=== PATIENT | female | born 1955 | race Caucasian/White ===

== ENCOUNTER 2025-06-28 12:06 | Observation (INO) | payer OTHER ==
[~2025-06-28] VITALS: Ht 175.3 cm; Wt 65.6 kg
--- NOTE | 2025-06-28 13:41 | Physician Documentation ---
History of Present Illness ~ Chief Complaint: Hypertension Stated Complaint: HYPERTENSION Time Seen by MD: 13:33 HPI 70-YEAR-OLD FEMALE PRESENTS TO THE ED WITH A COMPLAINT OF HYPERTENSION DIZZINESS AND A HEADACHE THIS MORNING SHE ALSO REPORTED THAT SHE HAD FLASHES OF LIGHT M OSTLY IN HER RIGHT EYE. SINCE THE SINCE GONE AWAY. DENIES ANY CHEST PAIN OR SHORTNESS OF BREATH BUT STATES SHE JUST DOES NOT FEEL QUITE RIGHT. Day of Onset: Jun 28, 2025 Medication Reconciliation Allergies: Coded Allergies: No Known Allergies (Unverified , 06/28/25) Review of Systems All Other Systems at this time: Reviewed and Negative ROS As stated above in the HPI, otherwise all systems are reviewed and negative. Physical Exam Vital Signs: Temperature: 96.9, Source: Temporal, Heart Rate: 70, Respiratory Rate: 18, BP: 196/95, Pulse Oximetry: 100, Weight: 65.600 Oxygen Flow Rate: 0 Physical Exam General: Alert, no apparent distress. Respiratory: Lungs clear, no respiratory distress. Cardiovascular: Regular rate and rhythm, no murmurs. Gastrointestinal: Soft, nontender, nondistended. Bowels sounds present. Neurologic: Oriented x4. NO FOCAL DEFICITS Psychiatric: Normal mood and affect. Skin: Normal color, warm and dry. No edema, no ecchymosis. Progress Results/Orders Results/Orders Orders - ANTHONY HERNANDEZ SUPERVISOR SCOURING PADS Ct Head (06/28/25 15:45) Page Hospitalist (06/28/25 ) Completed Orders - ANTHONY HERNANDEZ SUPERVISOR SCOURING PADS Electrocardiogram (06/28/25 ) BMP (06/28/25 13:47) PBNP (06/28/25 13:47) Hs Troponin I W Calculations (06/28/25 13:47) Ct Head (06/28/25 15:45) Hydralazine Inj. (Apresoline Inj.) (06/28/25 15:20) Urinalysis, Cult If Indicated (06/28/25 15:31) Ketorolac Trometh 30mg/Ml Vial (Toradol (06/28/25 17:15) Medications Received in ER Medications (Trade) Dose Ordered Sig/Stefanie Route PRN Reason Start Time Stop Time Status Last Admin Dose Admin (Apresoline inj.) 10 mg ONCE ONCE IV 06/28/25 15:20 06/28/25 15:21 DC 06/28/25 15:30 10 MG (Toradol inj. 30mg/ml) 15 mg ONCE ONCE IV 06/28/25 17:15 06/28/25 17:16 DC 06/28/25 17:54 15 MG (Cozaar tablet) 100 mg DAILY PO 06/28/25 17:30 06/28/25 17:52 100 MG (Norvasc tablet) 10 mg ONCE ONCE PO 06/28/25 17:30 06/28/25 17:46 DC 06/28/25 17:53 10 MG Vital Signs 06/28/25 06/28/25 06/28/25 06/28/25 12:09 14:00 15:30 15:33 Temp 96.9 Pulse 70 64 66 55 Resp 18 18 18 B/P (MAP) 196/95 178/85 (116) 167/80 (109) Pulse Ox 100 97 100 O2 Flow Rate 0 0 06/28/25 17:00 Pulse 66 Resp 18 B/P (MAP) 159/75 (103) Pulse Ox 98 Laboratory Tests Test 06/28/25 13:20 06/28/25 14:10 06/28/25 16:17 06/28/25 17:16 White Blood Count 6.3 Red Blood Count 4.89 Hemoglobin 14.9 Hematocrit 45.2 H Mean Corpuscular Volume 92.4 Mean Corpuscular Hemoglobin 30.5 Mean Corpuscular Hemoglobin Concent 33.0 Red Cell Distribution Width 13.3 Platelet Count 289 Mean Platelet Volume 8.8 Neutrophils (%) (Auto) 71.1 Lymphocytes (%) (Auto) 17.9 L Monocytes (%) (Auto) 9.4 Eosinophils (%) (Auto) 1.3 Basophils (%) (Auto) 0.3 Neutrophils # (Auto) 4.5 Lymphocytes # (Auto) 1.1 Monocytes # (Auto) 0.6 Eosinophils # (Auto) 0.1 Basophils # (Auto) 0.0 CBC Comment Chemistry Comments Sodium Level 140 Potassium Level 3.8 Chloride Level 104 Carbon Dioxide Level 29.6 Anion Gap 6 L Blood Urea Nitrogen 13 Creatinine 0.57 Estimated GFR/1.73 m2 > 90 BUN/Creatinine Ratio 22.8 H Glucose Level 97 Calcium Level 9.6 Troponin I High Sensitivity 6 9 10 Pro-B-Type Natriuretic Peptide 54 Albumin 4.1 Troponin I High Sens Percent Delta 50 11 Troponin I Hi Sens Absolute Change 3 1 Medical Decision Making Additional information obtaine: N/A Findings PATIENT HAS A PERSISTENT HEADACHE ALONG WITH RESISTANT HYPERTENSION. THIS IS UNUSUAL FOR THIS PATIENT. SHE DOES NOT HAVE ANY CURRENT FOCAL DEFICITS HOWEVER AND HER CT FINDINGS ARE UNREMARKABLE.. I GAVE HER TEN MG OF HYDRALAZINE WHICH ONLY BROUGHT HER DOWN TO 160 SYSTOLIC. GOING TO TREAT HER HEADACHE AND REQUEST EVALUATION. SHE MAY BENEFIT FROM AN ECHO CARDIOGRAM Differential Dx:Considerations: Include CHF, Include HTN, essential, Include HTN, accelerated, Include HTN, malignant, Include HTN, encephalopathy, Include medical noncompliance, Include medication withdrawal, Include pulmonary edema, Include renal failure, Include -induced, Include other Departure Disposition: ADMITTED INPATIENT Admitted to Inpatient Unit: to hospitalist Admission Level of Care: PCU Impression: Primary Impression: Hypertensive urgency Referrals: NO PRIMARY CARE PROVIDER (PCP) Signature Scribe Signature: h Attestation: Scribed for Anthony Hernandez Corporate Law Specialist by Anthony Coffey NP . 06/28/25 18:49 ANTHONY HERNANDEZ SUPERVISOR SCOURING PADS Jun 28, 2025 13:41
[2025-06-28 13:45] LABS: MEAN PLATELET VOLUME 8.8 FL (7.4-10.4); RED CELL DISTRIBUTION WIDTH 13.3 % (11.5-14.5)
--- NOTE | 2025-06-28 13:45 | RADIOLOGY REPORT ---
CHEST RADIOGRAPH Indication: CP Technique: Single frontal view of the chest was obtained Comparison: None FINDINGS: Lines and Tubes: None Lungs: No focal consolidation. Pleura: No effusion. No pneumothorax. Cardiomediastinal contours: Unremarkable Bones: No acute osseous abnormality. IMPRESSION: No acute cardiopulmonary disease.
--- NOTE | 2025-06-28 14:02 | ELECTROCARDIOGRAPH REPORT ---
[facility] Test Date: 2025-06-28 Test Time: 14:00:07 Pat Name: JAZZMINE DUPREE Department: [facility]-ER Patient ID: [facility]-[id number] Room: Gender: F Harness Cleaner: JOSE L : 1955 Requested By: IRENE HERNANDEZ Order Number: [id number] Reading MD: Measurements Intervals [place] Rate: 58 P: 79 ND: 146 QRS: 7 QRSD: 93 T: 61 QT: 449 QTc: 442 Interpretive Statements Sinus bradycardia Probable left atrial enlargement Low voltage, extremity and precordial leads Consider anterior infarct Baseline wander in lead(s) I,II,aVR,aVL Please click the below link to view image of tracing.
[2025-06-28 14:46] LABS: CREATININE 0.57 MG/DL (0.40-0.90); PRO BRAIN NATRIURETIC PEPTIDE 54 PG/ML (0-125); TOTAL CARBON DIOXIDE 29.6 MMOL/L (24-32); eCRCL 94 ML/MIN; eGFR > 90 ML/MIN
[2025-06-28] MEDS: hydrALAZINE 20mg/ml inj. IV ONE (15:30)
--- NOTE | 2025-06-28 16:19 | RADIOLOGY REPORT ---
CLINICAL HISTORY: DIZZINESS TECHNIQUE: Helical scanning was performed of the head from the skull base to the vertex. Multiplanar reconstructions were performed. This exam was performed according to our departmental dose optimization program. Up-to-date CT equipment and radiation dose reduction techniques are utilized as appropriate. CTDI 59 DLP 1052 COMPARISON: None FINDINGS: There is no evidence for acute intracranial hemorrhage, acute ischemic changes, mass, mass effect, or extra-axial fluid collection. There is no hydrocephalus or midline shift. There is no effacement of the cerebral sulci and basal subarachnoid cisterns. The hitchcock-white matter differentiation is well maintained. The imaged paranasal sinuses are clear. There has been right cataract extraction. IMPRESSION: NO ACUTE INTRACRANIAL ABNORMALITY SEEN.
[2025-06-28] MEDS ORDERED: magnesium sulf-water 2g/50mL 50 ML IV PRN (17:30)
[2025-06-28] MEDS ORDERED: magnesium sulf-water 4G/100mL 100 ML IV PRN (17:30)
[2025-06-28] MEDS ORDERED: ondansetron/PF 4mg/2ml inj IV PRN (17:30)
[2025-06-28] MEDS ORDERED: magnesium Cl slow-release 64mg tablet PO PRN (17:30)
[2025-06-28] MEDS ORDERED: potassium Cl 40MEQ/1/2NS 520ml 520 ML IV PRN (17:30)
[2025-06-28] MEDS ORDERED: potassium Cl 20 mEq SR tablet PO PRN ×2 (17:30)
[2025-06-28] MEDS ORDERED: bisacodyl 10mg suppository rectal RC PRN (17:30)
[2025-06-28] MEDS ORDERED: magnesium hydroxide 30ml (MOM) UD suspension PO PRN (17:30)
[2025-06-28] MEDS ORDERED: HYDROcodone/acetaminophen 5mg/325mg tablet PO PRN (17:30)
[2025-06-28] MEDS: ketorolac trometh 30MG/ML vial 30 MG/ML VIAL IV ONE (17:54)
[2025-06-28 18:01] LABS: LEUKOCYTE ESTERASE ,URINE NEGATIVE (Neg); NITRITES, URINE NEGATIVE (Neg); OCCULT BLOOD,URINE NEGATIVE (Neg)
[2025-06-28 18:05] LABS: UA COLLECTION TYPE CLN CATCH MIDSTREAM
[2025-06-28] MEDS ORDERED: NO HOME MEDS (19:00)
[2025-06-28] MEDS ORDERED: morphine 4 MG/ML inj SYRINge IV PRN (21:19)
--- NOTE | 2025-06-28 21:20 | HISTORY AND PHYSICAL ---
History & Physical Providers to CC ~ History of Present Illness Reason for Admit\Complaint: Hypertensive urgency History of Present Illness Patient was seen in ER with her for patient's concern regarding dizziness and headache. She also noticed light flashes in her right eye which disappeared off its own. Patient does not recall when she had her last appointment with labor relations specialist. Patient off and on gets high blood pressure follows in [facility] with COBY Rodriguez. Patient is currently not taking any medication for hypertension. In ER patient's vitals was monitored in it was 196/95 . Patient is not against taking the medication but likes to take lower dose of medication. Patient does drink alcohol one glass of wine off and on Patient also mentioned to me that she has plantar fasciitis and off and on her feet hurts and she is not following with any Podiatry specialist no procedure done for feet. She mentioned off and on when she gets the feet take she gets high blood pressure also. She recently had vacation in in that she walked a lot and did not of exertion in lifting up of stuff in house. She feels she is in stress currently. Allergies: Coded Allergies: No Known Allergies (Unverified , 06/28/25) Home Medications Home Medications Active Reported No Home Medications (Home Med List) Each Past Medical History Past Medical History No pertinent past medical history Past Surgical History Surgical History Comment No pertinent past surgical history Past Social History Social History Comment Patient denies use of any tobacco or any recreational drugs. Drink one glass of wine off and on. She lives with her able to ambulate without using any assistive device. ROS ROS Review of system as mentioned above in HPI rest of the review of system unremarkable Exam Vitals: Vital Signs Date Time Temp Pulse Resp B/P (MAP) Pulse Ox O2 Delivery O2 Flow Rate FiO2 06/28/25 18:58 75 16 171/76 (107) 100 0 06/28/25 12:09 96.9 General: General-patient not in any acute distress, alert awake oriented, age- appropriate, appear anxious. HEENT-atraumatic normocephalic, neck supple without elevated JVD, no thyromegaly or carotid bruit. No lymphadenopathy bilaterally. Eyes-no icterus or pallor seen in eyes Chest-clear to auscultation bilaterally, breathing nonlabored no tachypnea, no wheezing, no crepitation, no crackles. Heart-S1-S2 normal, regular heart rate no murmur Abdomen bowel sounds positive on auscultation, soft nondistended nontender no guarding, no rigidity Skin no active skin rash Neurology-grossly intact, nonfocal alert awake oriented Extremity- no pedal edema able to move all 4 extremities Psychiatry - patient is not confused or agitated cooperated during physical examination Diagnostic Data Last Recorded Lab Results: 06/28/25 1320 06/28/25 1410 Advance Care Planning Advanced Care plannin - 30 Minutes Additional Plan Patient was seen in ER with her for patient's concern regarding dizziness and headache. She also noticed light flashes in her right eye which disappeared off its own. In ER patient's vitals was monitored in it was 196/95 . Patient is admitted for hypertensive urgency with vision changes. Patient is strongly advised to follow with the ophthalmology specialist after her hospital discharge. Antihypertensive medication started today. Risk and consequences of uncontrolled blood pressure discussed with the patient. Lipid panel ordered for a.m.. Patient is also strongly advised to stop or taper alcohol if possible . Maintain blood pressure and heart rate log book for 2-3 weeks and follow-up with the primary care physician/ technical sales specialist for hypertension after discharge . We will continue to monitor patient's labs and vitals closely . Code status discussed with the patient patient wishes full code Time spent in discussing code status 16 minutes. Further management depending on response to treatment . I will continue to follow patient in a.m. Date of Service: Jun 28, 2025 Billing Provider: GEORGE JONES MD Common Visit Codes: 95870-IAWDTTI INP/OBS CARE (HIGH) Secondary Visit Codes: 44278-VCPVZFGD CARE PLAN 30 MINUTES GEORGE JONES MD Jun 28, 2025 21:20
[2025-06-28 21:28] VITALS: BP 113/47; PULSE 67; RESP 15; TEMP 98.3; O2SAT 98
[2025-06-28] MEDS: heparin, porcine 5000 units/ml vial SQ SCH (21:55)
[2025-06-28 22:11] VITALS: RESP 15; O2SAT 98
[2025-06-29 06:00] VITALS: BP 155/64; PULSE 67; RESP 14; TEMP 97.4; O2SAT 95
[2025-06-29 07:35] VITALS: RESP 16
[2025-06-29 09:03] LABS: MEAN PLATELET VOLUME 8.7 FL (7.4-10.4); RED CELL DISTRIBUTION WIDTH 12.8 % (11.5-14.5)
[2025-06-29 09:33] LABS: CHOL/HDL RATIO 4.1 (0.00-4.99); CREATININE 0.50 MG/DL (0.40-0.90); LDL CHOLESTEROL 164 MG/DL (50-100); TOTAL CARBON DIOXIDE 29.9 MMOL/L (24-32); eCRCL 107 ML/MIN; eGFR > 90 ML/MIN
[2025-06-29 10:00] VITALS: BP 91/61; PULSE 68; RESP 16; TEMP 98.6; O2SAT 96
[2025-06-29] MEDS ORDERED: LISI5TAB22 PO (14:00)
--- NOTE | 2025-06-29 18:38 | DISCHARGE SUMMARY ---
Discharge Summary Providers to CC ~ Discharge Summary Admission Diagnosis: HYPERTENSIVE URGENCY, VISION CHANGE Hospital Course DATE OF ADMISSION: June 28, 2025 DATE OF DISCHARGE:June 29, 2025 CBC testing done on June 29, 2025 WBC 5.6 hemoglobin 14.8 hematocrit 43.9 platelet count 286. Serum chemistry done on June 29, 2025 sodium 143 potassium 4.1 creatinine 0.50 GFR greater than 90 normal liver enzymes unremarkable cardiac marker proBNP 54. Lipid panel showing triglyceride 100 total cholesterol 260 LDL 164 HDL 64. Urine testing not showing any signs of UTI. CT HEADIMPRESSION: NO ACUTE INTRACRANIAL ABNORMALITY SEEN. CHEST,SINGLE VIEWIMPRESSION: No acute cardiopulmonary disease. Echo done today left ventricular ejection fraction 65-70% overall systolic function is normal normal left ventricular size and wall thickness RVSP 35 , rest of the echocardiogram unremarkable Discharge Diagnosis\Comment: Hypertensive urgency, dizziness and headache, light flashes in her right eye, anxiety, hyperlipidemia Operations\Procedures: None Consultants: None Complications: None Condition on DC: Stable New Medications: Lisinopril (Lisinopril) 5 Mg Tablet 1 TAB PO DAILY for 30 Days, #30 TAB 0 Refills Discontinued Medications: Home Med List (No Home Medications) Each Discharge Summary: Patient was seen in ER with her for patient's concern regarding dizziness and headache. She also noticed light flashes in her right eye which disappeared off its own. In ER patient's vitals was monitored in it was 196/95 . Patient is admitted for hypertensive urgency with vision changes. Patient is strongly advised to follow with the ophthalmology specialist after her hospital discharge. Antihypertensive medication started today in low dose . Her blood pressure improved. Risk and consequences of uncontrolled blood pressure discussed with the patient. Lipid panel ordered for a.m.. Patient is also strongly advised to stop or taper alcohol if possible . Maintain blood pressure and heart rate log book for 2-3 weeks and follow-up with the primary care physician/ billing specialist for hypertension after discharge . Further workup done results mentioned above. Patient's symptoms resolved. She was also given the option to do the head MRI in inpatient setting but she choose to do follow-up with PCP and eye check up and do MRI in outpatient setting if needed. Patient is feeling better she has been afebrile and getting discharged home in stable condition. Patient is seen and examined on the day of discharge. All labs, diagnostic workup and discharge plan discussed with patient in detail before her discharge. All questions and queries answered to the best of my professional medical knowledge. I heard patient's concerns and address appropriately. Patient was cleared by Physical therapy team for home discharge . hospice manager involved in patient's discharge plan. Discharge instructions provided to the patient. Follow-up with primary care physician in outpatient setting in 1-2 weeks. Adjustment of blood pressure medication done during hospital stay. Maintain blood pressure and heart rate log book for 2-3 weeks and follow-up with the primary care physician/ billing specialist for hypertension. Patient is strongly advised to follow with the ophthalmology specialist for her flutters in other eye problems. If symptoms get more worse come to ER for further evaluation and management. General-patient not in any acute distress, alert awake oriented, age- appropriate, appear less anxious. HEENT-atraumatic normocephalic, neck supple without elevated JVD, no thyromegaly or carotid bruit. No lymphadenopathy bilaterally. Eyes-no icterus or pallor seen in eyes Chest-clear to auscultation bilaterally, breathing nonlabored no tachypnea, no wheezing, no crepitation, no crackles. Heart-S1-S2 normal, regular heart rate no murmur Abdomen bowel sounds positive on auscultation, soft nondistended nontender no guarding, no rigidity Skin no active skin rash Neurology-grossly intact, nonfocal alert awake oriented, no focal neurological deficit able to ambulate well, normal speech no arm drift no drooping of angle of mouth . Extremity- no pedal edema able to move all 4 extremities Psychiatry - patient is not confused or agitated cooperated during physical examination *Problems/Diagnosis: (1) Hypertensive urgency Status: Acute Total Time Spent on D/C: > 30 Minutes Date of Service: Jun 29, 2025 Billing Provider: GEORGE JONES MD Common Visit Codes: 54146-SDQ/OBS DISCH DAY >30min GEORGE JONES MD Jun 29, 2025 18:31
--- NOTE | 2025-06-29 18:52 | CARDIOLOGY REPORT ---
APPROVED REPORT EXAM: Comprehensive 2D, Doppler, and color-flow Echocardiogram. Patient Location: [facility] Blood Pressure: 91/61 mmHg Heart Rate: 61 bpm Rhythm: NSR Indications Hypertension Dizziness No segment assembler No previous echo 2D Dimensions LA Diam 3.1 cm IVSd 1.0 (0.7-1.1cm) LVDd 4.2 cm PWd 1.0 (0.7-1.1cm) IVSs 1.3 (0.8-1.2cm) LVDs 2.5 (2.5-4.0cm) Aortic Root(2D) 3.0 cm PWs 1.3 (0.8-1.2cm) LVOT Diameter 2.02 (1.8-2.4cm) LVEF(%) 71.6 (>50%) Ao Asc Diam. 3.07 cm IVC 16.91 mm FS (%) 40.5 % SV 56.8 ml CO 3.5 L/min M-Mode Dimensions MV EPSS 0.3 (<0.5cm) Aortic Valve AoV Peak Neo. 208.5 cm/s AoV VTI 37.5 cm AO Peak GR. 17.4 mmHg AO Mean GR. 9 mmHg LVOT VTI 28.77 cm LVOT Peak Neo. 125.1 cm/s LASHONDA(VTI)/BSA 2.46 cm2/m2 LASHONDA (VTI) 2.46 cm2 AV DI 0.77 % Mitral Valve MV E Velocity 108.7 cm/s MV Peak Gr. 6 mmHg MV DECEL TIME 300 ms MV A Velocity 97.7 cm/s MV PHT 72 ms E/A Ratio 1.1 MVA (PHT) 3.06 cm2 MV VMax 125.5 cm/s TDI Medial E' P. V 14.10 cm/s E/Medial E' 7.7 Tricuspid Valve TR P. Velocity 248 cm/s RAP ESTIMATE 10 mmHg TR Peak Gr. 25 mmHg RVSP 35 mmHg Pulmonary Vein S1 Velocity 77.3 cm/s D2 Velocity 53.3 cm/s PVa Velocity 35.7 cm/s PVa Duration 80 msec LEFT VENTRICLE Normal LV size and wall thickness. Overall systolic function is normal. LVEF is 65-70%. RIGHT VENTRICLE RV appears normal in size and contractility. RVSP is estimated at 35 mmHG. ATRIA The left atrium size is normal. AORTIC VALVE Trileaflet AV appears sclerotic without stenosis. No insufficiency. MITRAL VALVE MV is thickened with mild annular thickening and no stenosis. Trace mitral regurgitation. TRICUSPID VALVE The tricuspid valve is normal in structure. Mild mulit-jet tricuspid regurgitation. PULMONIC VALVE The pulmonary valve is normal in structure. Trace pulmonic insufficiency. GREAT VESSELS The aortic root is normal in size. The ascending aorta is normal in size. The IVC is normal in size and collapses >50% with inspiration. PERICARDIUM There is no pericardial effusion. Other Information Study Quality: Adequate Conclusion Normal LV size and wall thickness. Overall systolic function is normal. LVEF is 65-70%. RV appears normal in size and contractility. RVSP is estimated at 35 mmHG. The left atrium size is normal. Trileaflet AV appears sclerotic without stenosis. No insufficiency. MV is thickened with mild annular thickening and no stenosis. Trace mitral regurgitation. The tricuspid valve is normal in structure. Mild mulit-jet tricuspid regurgitation. The pulmonary valve is normal in structure. Trace pulmonic insufficiency. There is no pericardial effusion.
== END 2025-06-29 15:07 | disposition home or self-care (01) ==
LOC: ER 12:07 → ED HOLD 17:33 → ORTHO 4S 17:33 → UNDOADMIN 17:33 → ED HOLD 21:13 → ORTHO 4S 21:13
PROVIDERS: ADMIT Internal Medicine; ATTEND Internal Medicine
DX: I16.0 Hypertensive urgency (principal); H53.8 Other visual disturbances; R42 Dizziness and giddiness; R51.9 Headache, unspecified; F41.9 Anxiety disorder, unspecified; E78.5 Hyperlipidemia, unspecified; Z79.899 Other long term (current) drug therapy; Z98.890 Other specified postprocedural states
CPT/HCPCS: 36415; 70450; 71045; 80048; 80053; 80061; 81003; 83880; 84484; 85025; 87081; 93005; 93306; 96372; 96374; 96375; 99285; G0378; J0360; J1644; J1885

== ENCOUNTER 2025-08-03 10:18 | Outpatient (CLI) | payer OTHER ==
[~2025-08-03 10:18] MED LIST: LISI5TAB22 PO
--- NOTE | 2025-08-03 13:18 | VASCULAR REPORT ---
Carotid Duplex Date: 08/03/2025 10:57 AM Clinical History: Pain Comparison: None Technique: Duplex Doppler evaluation of the extracranial carotid and vertebral arteries including color Doppler and spectral/pulsed waveform analysis was performed. Findings: Indications Dizziness Risk Factors Hypertension: Doppler Spectral Velocity Analysis Right Left pCCA 78/15 cm/s pCCA 80/13 cm/s dCCA 60/15 cm/s dCCA 76/15 cm/s ECA 80/ cm/s ECA 84/ cm/s pICA 53/13 cm/s pICA 57/15 cm/s Kim 86/22 cm/s Kim 74/21 cm/s dICA 82/20 cm/s dICA 92/27 cm/s Vert. 57/10 cm/s Vert. 53/15 cm/s Subcl 76/ cm/s Subcl. 144/ cm/s ICA/CCA 1.40 ICA/CCA 1.20 CONCLUSION Imaging reveals no evidence of significant stenosis and/or occlusion of the Carotid Arteries bilaterally. <50% stenosis visualized in the Common Carotid Arteries, Internal Carotid Arteries, and External Carotid Arteries bilaterally. Antegrade flow visualized in Vertebral Arteries bilaterally. Multiphasic Subclavian Arteries bilaterally.
== END 2025-08-03 23:59 | disposition home or self-care (01) ==
LOC: VAS 10:18
PROVIDERS: ATTEND Physician Assistant
DX: I65.23 Occlusion and stenosis of bilateral carotid arteries (principal); I10 Essential (primary) hypertension; R42 Dizziness and giddiness
CPT/HCPCS: 93880